=== PATIENT | male | born 1975 | race Hispanic/Latino ===

== ENCOUNTER 2019-01-20 08:26 | Observation (INO) | payer SELFPAY ==
[2019-01-20 08:53] LABS: #Eosinphils 0.2 thou/uL (0.0-0.7); #Lymphocytes 1.5 thou/uL (1.20-3.40); #Monocytes 0.6 thou/uL (0.11-0.59); #Neutrophils 3.9 thou/uL (1.40-6.50); %Basophils 0.4 % (0.0-1.0); %Eosinophils 3.4 % (0.0-10.0); %Lymphocytes 23.5 % (21.0-51.0); %Monocytes 10.2 % (0.0-10.0); %Neutrophils 62.6 % (42.0-75.0); Mean Corpuscular HGB CONC 32.7 g/dL (32.0-36.0); Mean Corpuscular Hemoglobin 28.7 pg (27.0-31.0); Mean Corpuscular Volume 87.7 fL (78.0-98.0); Platelet Count 194 thou/uL (130-400); RBC Distribution Width 11.4 % (11.5-14.5); Red Blood Cell (RBC) Count 5.24 mill/uL (4.70-6.10); White Blood Cell (WBC) Count 6.3 thou/uL (4.8-10.8)
--- NOTE | 2019-01-20 09:01 | CT ---
Exam: Head CT without contrast HISTORY: Left-sided facial droop COMPARISON: none FINDINGS: Hemorrhage: No intraparenchymal hemorrhage or extra-axial hematoma. Brain parenchyma: Cortical luna-white matter differentiation is preserved. No mass effect or midline shift. Basilar cisterns are patent Ventricular system: Ventricles and sulci are patent and symmetric. Calvarium: Intact. Sinuses and mastoid air cells: Adequate aeration. IMPRESSION: No acute intracranial process.
[2019-01-20 09:19] LABS: ALT (SGPT) 42 U/L (8-55); AST (SGOT) 28 U/L (5-34); Albumin 4.4 g/dL (3.5-5.0); Alkaline Phosphatase 91 U/L (40-150); Anion Gap 13 mmol/L (10-20); BUN (Urea Nitrogen) 15 mg/dL (8.9-20.6); Bilirubin, Total 1.5 mg/dL (0.2-1.2); Calc. Creatinine Clearance 0 mL/min (70-130); Calcium 9.5 mg/dL (7.8-10.44); Carbon Dioxide 23 mmol/L (22-29); Chloride 106 mmol/L (98-107); Estimated GFR-MDRD 76; Globulin 2.9 g/dL (2.4-3.5); Glucose 93 mg/dL (70-105); Potassium 4.2 mmol/L (3.5-5.1); Protein, Total 7.3 g/dL (6.0-8.3); Sodium 138 mmol/L (136-145)
[2019-01-20] MEDS ORDERED: predniSONE 20 MG TAB ONE (10:09)
[2019-01-20] MEDS ORDERED: Acetaminophen 500 MG TAB ONE (10:09)
[2019-01-20] MEDS ORDERED: Ketorolac Tromethamine 30 MG/ML VIAL ONE (10:09)
[2019-01-20] MEDS ORDERED: Aspirin 325 MG TAB ONE (11:10)
[2019-01-20] MEDS ORDERED: Ondansetron PF 4 MG/2 ML Vial IVP PRN (11:23)
[2019-01-20] MEDS ORDERED: Diabetic Tussin 200 MG/10 ML UDCUP PO PRN (11:23)
[2019-01-20] MEDS ORDERED: Nitroglycerin 0.4 MG TAB (25 Tab Bottle) SL PRN (11:23)
[2019-01-20] MEDS ORDERED: Senokot S 8.6-50 MG TAB PO PRN (11:23)
[2019-01-20] MEDS ORDERED: cloNIDine 0.1 MG TAB PO PRN (11:23)
[2019-01-20] MEDS ORDERED: hydrALAZINE 20 MG/ML VIAL SLOW IVP PRN (11:23)
[2019-01-20] MEDS ORDERED: Benzonatate 100 MG CAP PO PRN (11:23)
[2019-01-20] MEDS ORDERED: Acyclovir 400 mg Tablet PO SCH (12:30)
--- NOTE | 2019-01-20 13:24 | MRI ---
MRI BRAIN WITH AND WITHOUT IV CONTRAST: Date: 01/20/19 HISTORY: Left-sided facial droop, TIA. COMPARISON: None. CORRELATION: CT scan from earlier today. FINDINGS: No restricted diffusion is seen. No evidence of infarct, hemorrhage, mass, midline shift, or abnormal extra-axial fluid collections are seen. The ventricular size is normal and the basilar cisterns are patent. No abnormal postcontrast enhancement is seen. The visualized paranasal sinuses and mastoid ai r cells are well aerated. IMPRESSION: Normal exam. POS: TPC
--- NOTE | 2019-01-20 13:40 | ULT ---
BILATERAL CAROTID DUPLEX ULTRASOUND: DATE: 01/20/19 HISTORY: TIA. TECHNIQUE: Ambriz scale ultrasound with color flow and spectral Doppler imaging of the extracranial carotid artery systems performed bilaterally. FINDINGS: No significant plaque formation or intimal wall thickening is seen. The peak systolic velocity in the right ICA measures 63 cm/second with an end-diastolic velocity of 2 1 cm/second and a systolic ratio of 0.78. The peak systolic velocity in the left ICA measures 60 cm/second with an end-diastolic velocity of 20 cm/second and a systolic ratio of 0.68. Flow in both vertebral arteries remains antegrade. IMPRESSION: No evidence of hemodynamically significant stenosis. POS: TPC
[2019-01-20] MEDS ORDERED: Gadobenate Dimeglumine 529 MG/1 ML (20ML VIAL) ONE (14:43)
--- NOTE | 2019-01-20 15:38 | HP ---
PRIMARY CARE PHYSICIAN: None. CHIEF COMPLAINT: Left-sided facial droop, left-sided pain, and paresthesias. HISTORY OF PRESENTING ILLNESS: Mr. Feliz is a 43-year-old male without any known medical history, who presented to the emergency room with above-mentioned complaints. History is mainly obtained by the patient himself and supplemented by his family members. Mr. Feliz reports that he has had similar symptoms about 14 years ago. At this time, his symptoms started about 3 or 4 days ago. He had sudden onset of left-sided facial droop and felt pain in the back of his head on the left side as well as left shoulder associated with left lower extremity and upper extremity paresthesias. He also noticed difficulty closing his left eye and also has been having headaches. No problem with swallowing or speech or mentation. He has not been recently ill. He denies any recent fever, chills, rhinorrhea, or sore throat. No sick contacts. He denies any muscle weakness. He works as a construction project coordinator. Upon presentation to the emergency room today, his blood pressure was 107/62 and pulse of 56. He was hemodynamically stable. On examination, he was found to have left-sided facial droop and some drift in the left lower extremity according to the ER physician. His CT scan of the brain was unremarkable. His physical examination was consistent with possible Holland palsy and he received prednisone in the emergency room. Because of concern of left-sided paresthesias, he is now being admitted for rule out stroke. He is currently still having symptoms of facial droop and left-sided weakness in the face, but his left arm and leg paresthesias have resolved. PAST MEDICAL HISTORY: No past medical illnesses reported as per the patient. PAST SURGICAL HISTORY: None reviewed with the patient. PSYCHIATRIC HISTORY: No anxiety. No depression. SOCIAL HISTORY: He drinks "too much" every day. Drinks about 5 to 6 drinks per day. No history of excessive tobacco use. He smokes 1 to 2 cigarettes in 1 to 2 days. No history of drug abuse. FAMILY HISTORY: Denies any family history of coronary artery disease, stroke, diabetes, or hypertension. ALLERGIES: NO KNOWN MEDICATION ALLERGIES. CURRENT MEDICATIONS: None. REVIEW OF SYSTEMS: A 14-point review of system is done. It is negative except for those mentioned in the history and physical. LABORATORY DATA: CBC is unremarkable. Hemoglobin 15, WBC 6.3, and platelet count of 194. Serum chemistries unremarkable. Blood sugar is 93. Troponin less than 0.010. LFTs within normal limit. CT scan of the brain by my review has no evidence of acute infarction or hemorrhage or mass. PHYSICAL EXAMINATION: VITAL SIGNS: Upon presentation blood pressure 107/62, respirations are 18, saturating 94% on room air, temperature 97.8, and pulse of 56. GENERAL: No acute distress. Awake, alert, and oriented x3. HEENT: Left-sided facial droop is noticed from cursory examination. Mucous membrane is moist and pink. No oropharyngeal exudate or erythema. He is having a hard time closing his left eye completely. Loss of left-sided nasolabial fold is also noticed. NECK: Supple without any lymphadenopathy, JVD, or bruit. CHEST: Clear to auscultation without any wheezing, rales, or rhonchi. HEART: Rate and rhythm are regular without any murmurs, rubs, or gallops. ABDOMEN: Soft, nontender, and nondistended. Positive bowel sounds. EXTREMITIES: Free of any cyanosis, clubbing, or edema. NEUROLOGIC: Left-sided facial droop, loss of left nasolabial fold, and difficulty to wrinkle the left forehead as well as closed left eye is noticed. These findings are very typical of left-sided facial nerve palsy. No muscle weakness is noticed. Strength is 5/5 in all 4 extremities. No dysarthria. No dysdiadochokinesia. Sensation is intact. Other cranial nerve other than 7th are intact. PSYCHIATRIC: Normal affect. SKIN: Free of any rashes or bruises. Feels warm and dry to touch. IMPRESSION AND PLAN: 1. Left-sided facial droop. 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 He will be treated with oral steroids and oral acyclovir for now. The reason for admission is rule out stroke. Clinically, it is less likely. However, we will go ahead and perform the MRI transthoracic echocardiogram and carotid Doppler ultrasound to rule out CVA. We will also check a lipid panel. Monitor blood pressure and add p.r.n. antihypertensives for now. We will also request consultation with Neurology with regard to possible Holland palsy and the need for acyclovir. The patient can be discharged later in the day today if his stroke workup is negative. 2. Deep venous thrombosis and gastrointestinal prophylaxis. DISPOSITION: Mr. Feliz is currently being admitted to the hospital with a presumptive diagnosis of Holland palsy leading to left-sided facial droop. He is being admitted for CVA rule out in the differential diagnosis. He is currently on observation status. Job ID: [id number]
[2019-01-20] MEDS: Acetaminophen 500 MG TAB PO PRN (21:20)
[2019-01-20] MEDS: Acyclovir 400 mg Tablet PO SCH (21:20)
[2019-01-20 22:17] VITALS: BMI 26.7
[2019-01-21] MEDS: Acetaminophen 500 MG TAB PO PRN (07:17)
[2019-01-21] MEDS ORDERED: predniSONE 50 MG TAB PO SCH (08:00)
[2019-01-21] MEDS ORDERED: Enoxaparin Sodium 40 MG/0.4 ML SYRINGE SC SCH (09:00)
[2019-01-21] MEDS ORDERED: Aspirin 325 mg Enteric Coated Tablet PO SCH (09:00)
[2019-01-21] MEDS: Acyclovir 400 mg Tablet PO SCH (09:02)
[2019-01-21 11:44] VITALS: BP 128/65; TEMP 98.3
== END 2019-01-21 15:08 | disposition home or self-care (01) ==
LOC: ERS 08:26 → ERHOLD 11:20 → 2SE 19:19
PROVIDERS: ADMIT Internal Medicine; ATTEND Internal Medicine
DX: R29.810 Facial weakness (principal); R20.2 Paresthesia of skin; R51 Headache; F17.210 Nicotine dependence, cigarettes, uncomplicated; M25.512 Pain in left shoulder
CPT/HCPCS: 70450; 70553; 80053; 80061; 84484; 85025; 93005; 93306; 93880; 94760; 96372; 96374; A9577; G0378; J1650; J1885; J7512

== ENCOUNTER 2019-03-12 14:56 | Emergency (ER) | payer SELFPAY ==
--- NOTE | 2019-03-12 16:54 | CT ---
EXAM: CT brain without contrast HISTORY: Headache and facial drooping COMPARISON: 01/20/2019 TECHNIQUE: Multiple contiguous axial images were obtained and a CT of the brain without contrast. FINDINGS: The brain is normal in morphology and attenuation without focal lesions or confluent areas of infarction. There is no evidence of hydrocephalus, intracranial hemorrhage, or extra-axial fluid collection. The calvarium and overlying soft tissues are unremarkable. The visualized paranasal sinuses and masto id air cells are well aerated. There is remote dehiscence of the right medial orbital wall. IMPRESSION: No evidence of acute intracranial abnormality
[2019-03-12 17:05] LABS: #Basophils 0.1 thou/uL (0.0-0.2); #Eosinphils 0.2 thou/uL (0.0-0.7); #Lymphocytes 2.1 thou/uL (1.20-3.40); #Monocytes 0.8 thou/uL (0.11-0.59); #Neutrophils 5.2 thou/uL (1.40-6.50); %Basophils 0.8 % (0.0-1.0); %Eosinophils 2.5 % (0.0-10.0); %Lymphocytes 24.8 % (21.0-51.0); %Monocytes 9.2 % (0.0-10.0); %Neutrophils 62.7 % (42.0-75.0); Hemoglobin 14.9 g/dL (14.0-18.0); Mean Corpuscular HGB CONC 34.8 g/dL (32.0-36.0); Mean Corpuscular Hemoglobin 30.1 pg (27.0-31.0); Mean Corpuscular Volume 86.3 fL (78.0-98.0); Mean Platelet Volume 8.8 fL (7.4-10.4); Platelet Count 178 thou/uL (130-400); RBC Distribution Width 11.1 % (11.5-14.5); Red Blood Cell (RBC) Count 4.94 mill/uL (4.70-6.10); White Blood Cell (WBC) Count 8.3 thou/uL (4.8-10.8)
[2019-03-12 17:23] LABS: Magnesium 2.7 mg/dL (1.6-2.6)
[2019-03-12 17:25] LABS: ALT (SGPT) 35 U/L (8-55); AST (SGOT) 23 U/L (5-34); Acetaminophen Less than 6.0 mcg/mL (10.0-30.0); Albumin 4.6 g/dL (3.5-5.0); Alcohol Less than 10 mg/dL (Less than 10); Alkaline Phosphatase 91 U/L (40-150); Anion Gap 13 mmol/L (10-20); BUN (Urea Nitrogen) 16 mg/dL (8.9-20.6); Calc. Creatinine Clearance 0 mL/min (70-130); Calcium 9.5 mg/dL (7.8-10.44); Carbon Dioxide 24 mmol/L (22-29); Chloride 106 mmol/L (98-107); Estimated GFR-MDRD 73; Globulin 3.2 g/dL (2.4-3.5); Glucose 91 mg/dL (70-105); Potassium 3.8 mmol/L (3.5-5.1); Protein, Total 7.8 g/dL (6.0-8.3); Salicylate Less than 8.0 mg/dL (15.0-30.0); Sodium 139 mmol/L (136-145)
[2019-03-12] MEDS ORDERED: diphenhydrAMINE 50 MG/ML VIAL ONE (17:55)
[2019-03-12] MEDS ORDERED: Metoclopramide HCl 10 MG/2 ML VIAL ONE (17:55)
[2019-03-12] MEDS ORDERED: Ketorolac Tromethamine 30 MG/ML VIAL ONE (17:55)
== END 2019-03-12 19:21 | disposition home or self-care (01) ==
LOC: ERS 14:56
DX: R51 Headache (principal); G51.0 Bell's palsy; F17.210 Nicotine dependence, cigarettes, uncomplicated
CPT/HCPCS: 36415; 70450; 80053; 80307; 83690; 83735; 85025; 96361; 96365; 96375; J1200; J1885; J2765

== ENCOUNTER 2019-04-14 02:40 | Inpatient (IN) | payer SELFPAY ==
[2019-04-14] MEDS ORDERED: Proparacaine 0.5% Opth 15 ML BOT ONE (03:04)
[2019-04-14] MEDS ORDERED: Fluorescein Opthalmic Strip ONE (03:04)
[2019-04-14 03:30] LABS: #Eosinphils 0.2 thou/uL (0.0-0.7); #Lymphocytes 1.2 thou/uL (1.20-3.40); #Monocytes 0.8 thou/uL (0.11-0.59); #Neutrophils 3.6 thou/uL (1.40-6.50); %Basophils 0.3 % (0.0-1.0); %Eosinophils 3.2 % (0.0-10.0); %Lymphocytes 20.6 % (21.0-51.0); %Monocytes 14.4 % (0.0-10.0); %Neutrophils 61.4 % (42.0-75.0); Hemoglobin 14.7 g/dL (14.0-18.0); Mean Corpuscular Hemoglobin 29.7 pg (27.0-31.0); Mean Corpuscular Volume 87.5 fL (78.0-98.0); Mean Platelet Volume 8.5 fL (7.4-10.4); Platelet Count 159 thou/uL (130-400); Red Blood Cell (RBC) Count 4.94 mill/uL (4.70-6.10); White Blood Cell (WBC) Count 5.8 thou/uL (4.8-10.8)
[2019-04-14 03:42] LABS: ALT (SGPT) 50 U/L (8-55); AST (SGOT) 32 U/L (5-34); Albumin 4.1 g/dL (3.5-5.0); Alkaline Phosphatase 108 U/L (40-150); Anion Gap 10 mmol/L (10-20); BUN (Urea Nitrogen) 16 mg/dL (8.9-20.6); Bilirubin, Total 0.9 mg/dL (0.2-1.2); Calc. Creatinine Clearance 0 mL/min (70-130); Calcium 9.4 mg/dL (7.8-10.44); Carbon Dioxide 27 mmol/L (22-29); Chloride 106 mmol/L (98-107); Estimated GFR-MDRD 87; Globulin 2.8 g/dL (2.4-3.5); Glucose 109 mg/dL (70-105); Potassium 4.2 mmol/L (3.5-5.1); Protein, Total 6.9 g/dL (6.0-8.3); Sodium 139 mmol/L (136-145)
[2019-04-14] MEDS ORDERED: Dexamethasone 10 MG/ML VIAL ONE (05:52)
[2019-04-14] MEDS ORDERED: cefTRIAXone\\ROCEPHIN 1 GM VIAL ONE (05:53)
[2019-04-14] MEDS ORDERED: Clindamycin/D5W 600 mg/50 ml Premix Bag ONE (05:53)
[2019-04-14] MEDS ORDERED: Acyclovir Sodium 750 MG in Sodium Chloride 0.9% 250 ML 250 ML IVPB SCH (06:30)
[2019-04-14] MEDS ORDERED: Acetaminophen 325 MG TAB PO PRN ×2 (07:13→07:27)
[2019-04-14] MEDS ORDERED: Ondansetron ODT 4 MG TAB SL PRN (07:13)
[2019-04-14] MEDS ORDERED: HYDROcodone/Acetaminophen 5/325 mg Tablet PO PRN ×2 (07:13)
[2019-04-14] MEDS ORDERED: Ondansetron PF 4 MG/2 ML Vial IVP PRN ×2 (07:13→07:27)
[2019-04-14] MEDS ORDERED: hydrALAZINE 20 MG/ML VIAL SLOW IVP PRN (07:27)
[2019-04-14] MEDS ORDERED: Diabetic Tussin 200 MG/10 ML UDCUP PO PRN (07:27)
[2019-04-14] MEDS ORDERED: Bisacodyl 10 MG SUPP PR PRN (07:27)
[2019-04-14] MEDS ORDERED: Ondansetron ODT 4 MG TAB PO PRN (07:27)
[2019-04-14] MEDS ORDERED: Senokot S 8.6-50 MG TAB PO PRN (07:27)
[2019-04-14] MEDS ORDERED: Calcium Carbonate 500 MG ChewTAB PO PRN (07:27)
[2019-04-14] MEDS ORDERED: Loratadine 10 MG TAB PO PRN (07:27)
[2019-04-14] MEDS ORDERED: Loperamide HCl 2 MG CAP PO PRN (07:27)
[2019-04-14] MEDS ORDERED: Artificial Tears 18 DROP/0.9 ML EA EYE PRN (07:27)
[2019-04-14] MEDS ORDERED: Sodium Chloride 0.65% Nasal 44 ML BOT EA NARE PRN (07:27)
[2019-04-14] MEDS ORDERED: Cepastat Lozenges 1 LOZ PO PRN (07:27)
[2019-04-14] MEDS ORDERED: Zolpidem Tartrate 5 MG TAB PO PRN (07:27)
[2019-04-14 07:35] VITALS: BMI 29.5
--- NOTE | 2019-04-14 07:41 | CT ---
CT SOFT TISSUES OF THE NECK WITH IV CONTRAST: INDICATION: Left eye swelling and pain for 2 days with left ear pain and the patient reports that his throat is s welling. The patient says it is painful to open his mouth. The patient also reports chronic headach es. COMPARISON: None. FINDINGS: The visualized intracranial contents appear within normal limits. The retroorbital fat is preserved. The globes and extraocular muscles appear within normal limits. There is some mild soft tissue swelling involving the left infraorbital soft tissues. There are a few mildly prominent lymph nodes seen within the upper neck, left greater than right. On e of the largest is seen within the deep aspect of the left parotid gland measuring 1.2 cm. Addition al left 1 view enlarged lymph node measuring 11 mm on image 66 of series 2 is present. There are pro minent level II and level III lymph nodes bilaterally. There is slight thickening of the platysma overlying the left aspect of the neck. There is a dental marychuy with periodontal disease involving the right posterior mandibular molar. There is a defect involving the right medial orbital wall which is likely related to old trauma or co ngenital dehiscence. No air fluid level is seen within the paranasal sinuses nor in the mastoid air cells. There is mild prominence of the palatine tonsils. The remaining visualized aerodigestive tract appea rs within normal limits. A small hypodensity is seen involving the inferior pole of the right thyroi d lobe. The lung apices are clear. There is mild to moderate degenerative change of the cervical sp ine. There is slight ossification of the posterior longitudinal ligament of the cervical spine. Spi nal alignment is within normal limits. IMPRESSION: 1. Left infraorbital and left-sided facial cellulitis. No postseptal orbital cellulitis is evident. 2. Prominence of the palatine tonsils. Findings may reflect a palatine lymphadenitis from infectiou s etiologies. Recommend correlation with the clinical examination. 3. Likely reactive mildly enlarged lymph nodes of the upper neck, left greater than right. 4. Right posterior mandibular molar dental marychuy and periodontal disease. POS: BH
[2019-04-14] MEDS: Saccharomyces boulardii 250 MG CAP PO SCH (08:56)
[2019-04-14] MEDS: Sodium Chloride 0.9% 1,000 ML IV SCH (08:56)
[2019-04-14] MEDS: Famotidine 20 MG TAB PO SCH ×2 (08:56→20:17)
[2019-04-14] MEDS: Enoxaparin Sodium 40 MG/0.4 ML SYRINGE SC SCH (08:57)
[2019-04-14] MEDS: Vancomycin HCl 1.5 GM in Sodium Chloride 0.9% 250 ML 300 ML IVPB SCH ×2 (09:22→20:17)
[2019-04-14] MEDS ORDERED: ISOVUE-370 76%-LOCM 1 ML ONE (10:56)
[2019-04-14] MEDS: Ketorolac Tromethamine 30 MG/ML VIAL IVP PRN ×2 (11:00→16:44)
--- NOTE | 2019-04-14 13:09 | HP ---
PRIMARY CARE PHYSICIAN: [facility]. REASON FOR ADMISSION: Facial cellulitis, periorbital cellulitis. HISTORY OF PRESENT ILLNESS: This is a 43-year-old male, who was brought to emergency room with left-sided facial pain and left-sided facial swelling. He has left-sided periorbital region swelling and tenderness. He denies any fever or chills. He denies any nausea or vomiting. The patient has significant amount of pain on the left side of face. He was complaining of pain on his left-sided scalp as well as left side of the ear. He denies any rash. He denies any associated sore throat or any hearing deficit. He denies any facial asymmetry. In the emergency room, the patient had CT scan of soft tissue head and neck, which showed left infraorbital and left-sided facial cellulitis. There was prominence of palatine tonsil as well as there was enlarged lymph nodes. The patient also has right posterior mandibular molar dental caries and periodontal disease. The patient received antibiotic therapy in the emergency room, and subsequently, he was admitted to medical floor. PAST MEDICAL HISTORY: Reviewed and negative. PAST SURGICAL HISTORY: Reviewed and negative. PAST PSYCHIATRIC HISTORY: Reviewed and negative. SOCIAL HISTORY: The patient has history of alcohol abuse. He still smokes about 1 to 2 cigarettes on a daily basis. He denies any other illicit drug abuse. FAMILY HISTORY: No strong family history of premature coronary artery disease, stroke, or cancer. ALLERGIES: NO KNOWN DRUG ALLERGIES. CURRENT HOME MEDICATIONS: The patient is not taking any prescribed or non-prescribed medications. REVIEW OF SYSTEMS: CONSTITUTIONAL: Negative for weight loss or gain, ability to conduct usual activities. SKIN: Negative for rash, itching. EYES: Negative for double vision, pain. ENT/MOUTH: Negative for nose bleeding, neck stiffness, pain, tenderness. CARDIOVASCULAR: Negative for palpitations, dyspnea on exertion, orthopnea. RESPIRATORY: Negative for shortness of breath, wheezing, cough, hemoptysis, fever or night sweats. GASTROINTESTINAL: Negative for poor appetite, abdominal pain, heartburn, nausea , vomiting, constipation, or diarrhea. GENITOURINARY: Negative for urgency, frequency, dysuria, nocturia. MUSCULOSKELETAL: Negative for pain, swelling. NEUROLOGIC/PSYCHIATRIC: Negative for anxiety, depression. ALLERGY/IMMUNOLOGIC: Negative for skin rash, bleeding tendency. Please see my HPI for pertinent positives and negatives. All other review of systems is reviewed and negative except as mentioned in HPI. EMERGENCY ROOM COURSE: The patient has received clindamycin, Rocephin, Decadron , acyclovir, PHYSICAL EXAMINATION: VITAL SIGNS: Currently, blood pressure 112/70, pulse 65, respiratory rate 14, temperature 97.9, saturation 97% on room air. Weight 74.8 kg. GENERAL: The patient is currently alert and awake, in mild distress due to pain. HEENT: Head; normocephalic, atraumatic. Eyes; left-sided eye swelling noted. LUNGS: Clear to auscultation without any rhonchi or rales. CARDIAC: S1 and S2, regular without any murmur. ABDOMEN: Soft and benign. EXTREMITIES: No edema. NEUROLOGIC: Nonfocal examination. SKIN: No skin rash. FACE: Noted the patient has significant tenderness and left-sided facial swelling as well as left side of scalp, but no rash noted. SIGNIFICANT LABORATORY DATA: CBC; WBC 5.8, hemoglobin 14.7, and platelets 159. BMP; sodium 139, potassium 4.2, chloride 106, carbon dioxide 27, anion gap 10, BUN 16, creatinine 0.94, glucose 109, calcium 9.4. LFT; AST 32, ALT 50, alkaline phosphatase 108, albumin 4.1. ASSESSMENT AND PLAN: Impression: 1. Left-sided facial cellulitis. This patient has left-sided periorbital cellulitis, left-sided facial cellulitis. The patient also has dental caries. The patient also has some skin spot around nose. All this contributed to his inflammatory process on the left side of face. We will treat with vancomycin and Zosyn. We will control his pain with Toradol and we will monitor clinical response. If the patient condition does not improve, then we will consider ID evaluation , but we are expecting with this antibiotic therapy, this patient should get better in next day or two. Plan of care discussed with the patient's family member. 2. Deep venous thrombosis prophylaxis. Lovenox 40 mg subcu daily. 3. Gastrointestinal prophylaxis. Pepcid 20 mg p.o. b.i.d. CODE STATUS: The patient is full code. DISPOSITION PLAN: Based on clinical course, we are expecting the patient's stay in hospital more than 2 midnights. Plan of care discussed with the patient and family member. Job ID: [id number] [facility]
[2019-04-14] MEDS ORDERED: Clindamycin/D5W 600 MG in Premix Bag 1 BAG IVPB SCH (15:00)
[2019-04-14] MEDS: Piperacillin/Tazobactam 4.5 GM in Sodium Chloride 0.9% 100 ML IVPB SCH ×2 (16:46→23:29)
[2019-04-14] MEDS: HYDROcodone/Acetaminophen 5/325 mg Tablet PO PRN (20:22)
[2019-04-15] MEDS: Sodium Chloride 0.9% 1,000 ML IV SCH (01:44)
[2019-04-15] MEDS: Piperacillin/Tazobactam 4.5 GM in Sodium Chloride 0.9% 100 ML IVPB SCH ×3 (05:24→18:12)
[2019-04-15 05:39] LABS: #Lymphocytes 1.4 thou/uL (1.20-3.40); #Monocytes 1.2 thou/uL (0.11-0.59); #Neutrophils 7.7 thou/uL (1.40-6.50); %Eosinophils 0.2 % (0.0-10.0); %Lymphocytes 13.1 % (21.0-51.0); %Monocytes 11.8 % (0.0-10.0); %Neutrophils 74.9 % (42.0-75.0); Hemoglobin 13.9 g/dL (14.0-18.0); Mean Corpuscular HGB CONC 35.2 g/dL (32.0-36.0); Mean Corpuscular Hemoglobin 30.1 pg (27.0-31.0); Mean Corpuscular Volume 85.5 fL (78.0-98.0); Mean Platelet Volume 8.6 fL (7.4-10.4); Platelet Count 180 thou/uL (130-400); RBC Distribution Width 10.8 % (11.5-14.5); Red Blood Cell (RBC) Count 4.63 mill/uL (4.70-6.10); White Blood Cell (WBC) Count 10.3 thou/uL (4.8-10.8)
[2019-04-15 05:57] LABS: Anion Gap 7 mmol/L (10-20); BUN (Urea Nitrogen) 17 mg/dL (8.9-20.6); Calc. Creatinine Clearance 123 mL/min (70-130); Calcium 9.2 mg/dL (7.8-10.44); Carbon Dioxide 25 mmol/L (22-29); Chloride 109 mmol/L (98-107); Estimated GFR-MDRD 86; Glucose 140 mg/dL (70-105); Potassium 4.2 mmol/L (3.5-5.1); Sodium 137 mmol/L (136-145)
[2019-04-15] MEDS ORDERED: cefTRIAXone\\ROCEPHIN 1 GM in Sodium Chloride 0.9% 100 ML IVPB SCH (06:00)
[2019-04-15] MEDS: Saccharomyces boulardii 250 MG CAP PO SCH (09:53)
[2019-04-15] MEDS: Vancomycin HCl 1.5 GM in Sodium Chloride 0.9% 250 ML 300 ML IVPB SCH (09:53)
[2019-04-15] MEDS: Enoxaparin Sodium 40 MG/0.4 ML SYRINGE SC SCH (09:53)
[2019-04-15] MEDS: Famotidine 20 MG TAB PO SCH ×2 (09:53→20:43)
[2019-04-15] MEDS: Ketorolac Tromethamine 30 MG/ML VIAL IVP PRN (10:12)
--- NOTE | 2019-04-15 12:24 | PDOC.HOSPP ---
- Subjective Subjective: Patient seen and examined. No new complaints. No overnight events - Objective Vital Signs & Weight: Vital Signs (12 hours) Temp Pulse Resp BP BP Pulse Ox 04/15/19 12:00 97.7 F 66 14 113/66 95 04/15/19 08:00 98.0 F 60 16 132/65 95 04/15/19 04:00 98.0 F 69 16 118/59 L 96 Weight Weight 194 lb 8 oz Result Diagrams: 04/15/19 05:22 04/15/19 05:22 ROS - Review of Systems All systems: All other ROS were reviewed and found negative. Constitutional: denies: fever, chills, sweats, weakness, malaise, other ENT: denies: ear pain, ear discharge, nose pain, nose discharge, nose congestion , mouth pain, mouth swelling, throat pain, throat swelling, other Respiratory: denies: cough, dry, shortness of breath, hemoptysis, SOB with excertion, pleuritic pain, sputum, wheezing, other Cardiovascular: denies: chest pain, palpitations, orthopnea, paroxysmal noc. dyspnea, edema, light headedness, other Gastrointestinal: denies: nausea, vomitting, abdominal pain, diarrhea, constipation, melena, hematochezia, other Genitourinary: denies: dysuria, frequency, incontinence, hematuria, retention, other Musculoskeletal: denies: neck pain, shoulder pain, arm pain, back pain, hand pain, leg pain, foot pain, other Skin: denies: rash, lesions, sarah, bruising, other - Medication Medications: Active Medications Generic Name Dose Route Start Last Admin Trade Name Norbertoq PRN Reason Stop Dose Admin Hydrocodone Bitart/Acetaminophen 1 tab 04/14/19 07:27 04/14/19 20:22 [place] 5/325 PO 1 tab Q4H PRN Administration Moderate Pain (4-6) Enoxaparin Sodium 40 mg 04/14/19 09:00 04/15/19 09:53 Lovenox SC 40 mg 0900 SERGE Administration Famotidine 20 mg 04/14/19 09:00 04/15/19 09:53 Pepcid PO 20 mg BID SERGE Administration Vancomycin HCl 1.5 gm/ Sodium 300 mls @ 200 mls/hr 04/14/19 08:00 04/15/19 09 :53 Chloride IVPB 300 mls 08,1999 SERGE Administration Piperacillin Sod/Tazobactam 100 mls @ 200 mls/hr 04/14/19 18:00 04/15/19 05: 24 Sod 4.5 gm/ Sodium Chloride IVPB 100 mls Q6HR SERGE Administration Ketorolac Tromethamine 15 mg 04/14/19 07:27 04/15/19 10:12 Toradol IVP 04/19/19 07:28 15 mg Q6H PRN Administration Moderate Pain (4-6) Saccharomyces Boulardii 250 mg 04/14/19 09:00 04/15/19 09:53 Florastor PO 250 mg DAILY SERGE Administration - Exam NAD, awake alert Eye: PERRL, anicteric sclera ENT: normocephalic atraumatic, no oropharyngeal lesions Neck: supple, symmetric, no JVD Heart: RRR, no murmur, no gallops Respiratory: CTAB, no wheezes, no rales, no ronchi Gastrointestinal: soft, non-tender, non-distended, normal bowel sounds Extremities: no cyanosis, no clubbing, no edema Skin: normal turgor, no lesions Neurological: CN's grossly intact, no focal deficits Musculoskeletal: normal tone, normal strength Psychiatric: normal affect, normal behavior Hosp A/P (1) Cellulitis, face Code(s): L03.211 - CELLULITIS OF FACE Status: Acute - Plan old records reviewed/req, plan discussed w/ family, continue antibiotics continue vancomycin and zosyn today pt has clinical improvement will consider dc tomorrow medication reviewed as below symptomatic treatment
[2019-04-15] MEDS: HYDROcodone/Acetaminophen 5/325 mg Tablet PO PRN ×2 (15:13→20:47)
[2019-04-15 19:22] LABS: Vancomycin, Trough 12.9 ug/mL
[2019-04-15] MEDS: Vancomycin HCl 1.75 GM in Sodium Chloride 0.9% 500 ML IVPB SCH (20:43)
[2019-04-16] MEDS: Piperacillin/Tazobactam 4.5 GM in Sodium Chloride 0.9% 100 ML IVPB SCH ×3 (00:10→12:40)
[2019-04-16 06:15] VITALS: TEMP 97.9
[2019-04-16 07:51] VITALS: BP 133/84
[2019-04-16] MEDS: Famotidine 20 MG TAB PO SCH (09:01)
[2019-04-16] MEDS: Saccharomyces boulardii 250 MG CAP PO SCH (09:02)
[2019-04-16] MEDS: Vancomycin HCl 1.75 GM in Sodium Chloride 0.9% 500 ML IVPB SCH (09:02)
[2019-04-16] MEDS: Enoxaparin Sodium 40 MG/0.4 ML SYRINGE SC SCH (09:02)
[2019-04-16] MEDS: HYDROcodone/Acetaminophen 5/325 mg Tablet PO PRN ×2 (09:09→18:45)
--- NOTE | 2019-04-16 20:53 | CON ---
DATE OF CONSULTATION: 04/16/2019 REASON FOR CONSULTATION: Possible facial cellulitis versus herpes zoster. HISTORY OF PRESENT ILLNESS: A 43-year-old who has a history of previous episode of left facial palsy in the recent past, who now presents with pustular lesions in left side of his face involving the left naris and a few other discrete pustules in the periorbital location. He has some tenderness in the scalp region as well. The patient was admitted and started on antimicrobial therapy. CT scan of the head and neck showed some inflammatory changes in the soft tissues and some lymphadenopathy. No headaches. No visual symptoms. No sore throat, odynophagia, or dysphagia. No respiratory symptoms or abdominal pain. No back pain. No genitourinary symptoms. No joint symptoms. No neurological symptoms. PAST MEDICAL HISTORY: Previous left-sided facial palsy. PAST SURGICAL HISTORY: Negative. 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 Smokes daily 2 or 3 cigarettes per day. FAMILY HISTORY: Noncontributory. ALLERGIES: NONE. CURRENT MEDICATIONS: Include; 1. Tylenol. 2. [place]. 3. Dulcolax. 4. Tums. 5. Lovenox. 6. Pepcid. 7. Toradol. 8. Imodium. 9. Claritin. 10. Zosyn. 11. Vancomycin. PHYSICAL EXAMINATION: VITAL SIGNS: T-max 98, BP 130/80, pulse 68, respirations 16, and O2 saturation 96. SKIN: Remarkable for pustules in the nasal area, left side only and the periorbital region. Those are discrete pustules. There is a little bit of erythema associated around them. The orbital area has a little bit of erythema, but the cornea seems to be clear. Oral cavity is normal. Quite a few teeth in place in fairly decent shape. The ear exam was normal. NECK: Supple. No jugular vein distention. LUNGS: Symmetric, clear breath sounds. HEART: S1 and S2, regular rate. No S3 or S4. ABDOMEN: Soft, not distended or tender. No ascites. No bladder distention. EXTREMITIES: No joint inflammatory activity. NEURO: Nonfocal. LABORATORY DATA: White cell count was 5.8 and 10.3, hemoglobin 13.9, MCV 85, platelets 180, 13% lymphocytes. Sodium 137, creatinine 0.95. Liver profile normal. Microbiology, no specimens submitted. Soft tissue neck CT with findings described above. ASSESSMENT: 1. Alcohol dependence syndrome. 2. Chronic smoking. 3. Previous left facial palsy. 4. Pustules in the left side of the face with some small areas of cellulitis, which are discrete in separate areas of the left side. DISCUSSION: The differential diagnosis includes herpes zoster in the 1st trigeminal distribution versus just a bacterial cellulitis. I believe the herpes zoster is more likely scenario because of the distribution of the pustules. We will submit VZV DNA PCR and consider discharge planning on Valtrex for 7 days 1 g 3 times daily plus oral clindamycin. Job ID: [id number]
--- NOTE | 2019-04-17 04:59 | DIS ---
DATE OF ADMISSION: 04/14/2019 DATE OF DISCHARGE: 04/16/2019 FINAL DIAGNOSIS: Facial cellulitis, questionable shingles infection. CONSULTANTS: Dr. Goldberg, infectious Disease Service. HOSPITAL COURSE: The patient was a 43-year-old male, who was brought to the emergency room with left-sided facial pain and left-sided facial swelling, which was periorbital. He denied any fever and chills and denied any nausea, vomiting. He denied any rash. He denied any associated sore throat or any hearing deficit. He denied any facial asymmetry. In the emergency room, the patient CT a CT scan of the soft tissue of the head and neck, which showed left infraorbital and left sided facial cellulitis. There was prominence of palatine tonsil as well as there was enlarged lymph node. The patient received antibiotic therapy in the emergency room and subsequently he was admitted to the medical floor. At the time of admission, his white count was 5.8, hemoglobin 14.7 with platelets 159,000. Chemistry was within normal limits. He was continued on vancomycin and Zosyn for broad spectrum. He improved with this treatment, but there was a question whether he has some shingles, so Infectious Disease MD was called, Dr. Goldberg who did PCR on one of the pustules on the skin from this area, which was sent out and he recommends to use Valtrex 1000 mg 3 times a day for the next 7 days. Also he would like to use clindamycin 450 mg every 6 hours x10 days. The patient is improved. Vitals are stable. He is not febrile. He did not have any fever when he was in the hospital. FOLLOWUP: He is going to follow up with his primary care physician in 1 week. He will stay on regular diet and activities as tolerated. TIME SPENT: On this discharge is less than 30 minutes. Job ID: [id number]
== END 2019-04-16 19:05 | disposition home or self-care (01) | DRG 603 ==
LOC: ERS 02:40 → T4-A 05:37
PROVIDERS: ADMIT Hospitalist; ATTEND Hospitalist
DX: L03.213 Periorbital cellulitis (principal); B02.8 Zoster with other complications; L03.211 Cellulitis of face; F17.210 Nicotine dependence, cigarettes, uncomplicated; F10.20 Alcohol dependence, uncomplicated; G80.9 Cerebral palsy, unspecified
CPT/HCPCS: 36415; 70487; 70491; 80048; 80053; 80202; 85025; 96365; 96375; J0133; J0696; J1100; J1650; J1885; J2543; J3370; J3490; J7050

== ENCOUNTER 2019-12-28 14:24 | Emergency (ER) | payer SELFPAY ==
[2019-12-28] MEDS ORDERED: Ondansetron PF 4 MG/2 ML Vial ONE (14:46)
[2019-12-28 15:04] LABS: #Eosinphils 0.1 thou/uL (0.0-0.7); #Lymphocytes 1.3 thou/uL (1.20-3.40); #Monocytes 0.5 thou/uL (0.11-0.59); #Neutrophils 5.9 thou/uL (1.40-6.50); %Basophils 0.6 % (0.0-1.0); %Eosinophils 0.8 % (0.0-10.0); %Lymphocytes 16.7 % (21.0-51.0); %Monocytes 6.7 % (0.0-10.0); %Neutrophils 75.3 % (42.0-75.0); Hemoglobin 15.6 g/dL (14.0-18.0); Mean Corpuscular HGB CONC 35.5 g/dL (32.0-36.0); Mean Corpuscular Hemoglobin 30.6 pg (27.0-31.0); Mean Corpuscular Volume 86.2 fL (78.0-98.0); Mean Platelet Volume 9.3 fL (7.4-10.4); Platelet Count 196 thou/uL (130-400); Red Blood Cell (RBC) Count 5.08 mill/uL (4.70-6.10); White Blood Cell (WBC) Count 7.8 thou/uL (4.8-10.8)
--- NOTE | 2019-12-28 15:07 | RAD ---
Exam: Chest one view HISTORY:Weakness. Comparison: None FINDINGS: Cardiac silhouette: Normal Aorta: Unremarkable Pulmonary vessels: Normal Costophrenic angles: Clear LUNGS: No masses or consolidation. Pneumothorax: None Osseous abnormalities: None IMPRESSION: No acute cardiopulmonary process.
[2019-12-28 15:28] LABS: ALT (SGPT) 29 U/L (8-55); AST (SGOT) 19 U/L (5-34); Albumin 4.7 g/dL (3.5-5.0); Alkaline Phosphatase 96 U/L (40-110); Anion Gap 10 mmol/L (10-20); BUN (Urea Nitrogen) 14 mg/dL (8.9-20.6); Bilirubin, Total 1.1 mg/dL (0.2-1.2); CK (CPK) 132 U/L (30-200); Calc. Creatinine Clearance 0 mL/min (70-130); Calcium 9.7 mg/dL (7.8-10.44); Carbon Dioxide 28 mmol/L (22-29); Chloride 105 mmol/L (98-107); Estimated GFR-MDRD 82; Globulin 2.8 g/dL (2.4-3.5); Glucose 108 mg/dL (70-105); Lipase 25 U/L (8-78); Potassium 4.7 mmol/L (3.5-5.1); Protein, Total 7.5 g/dL (6.0-8.3); Sodium 138 mmol/L (136-145)
--- NOTE | 2019-12-28 15:37 | CT ---
CT ABDOMEN AND PELVIS WITHOUT CONTRAST: 12/28/19 HISTORY: Abdominal pain. FINDINGS: Absence of oral and IV contrast reduces the sensitivity of the exam particularly for the evaluation o f solid organs and bowel. Motion artifact also adds to the reduction in sensitivity. The lung bases are clear. No free air of free fluid is seen in the abdomen or pelvis. No calculi seen in the kidneys, ureters or the urinary bladder. No hydroureteronephrosis noted on either side. A nor mal appearing appendix is present. The aortic caliber is normal. There is enlargement of the prostate gland. There are degenerative changes in the spine. A small hiatal hernia is present. IMPRESSION: 1. No CT evidence of urinary tract calculi/obstruction or appendicitis. 2. Small hiatal hernia. 3. Prostatic enlargement. POS: [facility]
--- NOTE | 2019-12-29 13:43 | EKG ---
Test Reason : Blood Pressure : / mmHG Vent. Rate : 062 BPM Atrial Rate : 062 BPM P-R Int : 156 ms QRS Dur : 082 ms QT Int : 426 ms P-R-T Axes : 061 007 014 degrees QTc Int : 432 ms Normal sinus rhythm Normal ECG Confirmed by PIETER VERONICA ([id number]), videotape editor TANI MCCABE ([id number]) on 12/29/2019 1:43:33 PM Referred By: Confirmed By:PIETER VERONICA
== END 2019-12-28 16:31 | disposition home or self-care (01) ==
LOC: ERS 14:24
DX: R10.9 Unspecified abdominal pain (principal); R53.1 Weakness; G51.0 Bell's palsy; F17.210 Nicotine dependence, cigarettes, uncomplicated; Z86.73 Personal history of transient ischemic attack (TIA), and cerebral infarction without residual deficits
CPT/HCPCS: 71045; 74176; 80053; 82550; 83690; 84484; 85025; 93005; 96374; J2405